=== PATIENT | female | born 1980 | race Caucasian/White ===

== ENCOUNTER 2023-03-07 01:59 | Emergency (ER) | payer OTHER ==
[~2023-03-07] VITALS: Ht 177.8 cm; Wt 68.5 kg
--- NOTE | 2023-03-07 02:15 | NUR ---
BIB FRIEND FOR C/O N/V. PT AAOX4, STILL NAUSEATED, PLACED COMFORTABLY IN BED, VITALS CHECKED.
[2023-03-07] MEDS ORDERED: ONDANSETRON HCL/PF 4 MG/2 ML VIAL ONE (02:22)
[2023-03-07] MEDS ORDERED: ONDANSETRON HCL/PF 4 MG/2 ML VIAL IV ONE (02:30)
[2023-03-07] MEDS ORDERED: IV NS 0.9% 1,000 ML IV PRN (02:30)
--- NOTE | 2023-03-07 02:30 | NUR ---
20GA TO LEFT AC ESTABLISHED.
[2023-03-07 03:24] LABS: BASOPHILS % (AUTO) 0.1 % (0.0-2.0); HEMATOCRIT 41 % (33-45); HEMOGLOBIN 13.5 g/dL (11.5-14.8); LYMPHOCYTES # (AUTO) 1.1 K/uL (0.8-4.8); LYMPHOCYTES % (AUTO) 6.6 % (20.0-44.0); MEAN CORPUSCULAR HGB CONC 33 g/dl (31.0-36.0); MEAN CORPUSCULAR VOLUME 94 fL (82-100); MONOCYTES # (AUTO) 0.9 K/uL (0.1-1.30); MONOCYTES % (AUTO) 5.6 % (2.0-12.0); NEUTROPHILS # (AUTO) 14.3 K/uL (1.8-8.9); NEUTROPHILS % (AUTO) 87.7 % (43.0-81.0); PLATELET COUNT (AUTO) 398 K/uL (150-450); RED BLOOD CELL COUNT(AUTO) 4.33 MIL/uL (4.0-5.2); WHITE BLOOD COUNT (AUTO) 16.3 K/uL (4.3-11.0)
[2023-03-07 03:33] LABS: CALCIUM, SERUM 9.7 mg/dL (8.5-10.1); POTASSIUM 3.8 mmol/L (3.5-5.1)
[2023-03-07] MEDS ORDERED: ONDA4TAB11 PO (04:30)
[2023-03-07 04:47] VITALS: BP 121/64
--- NOTE | 2023-03-07 04:47 | NUR ---
Patient discharged to home in stable condition. Written and verbal after care instructions given. Patient verbalizes understanding of instruction. IV removed. Catheter intact and site benign. Pressure and 4x4 applied to site. No bleeding noted.
== END 2023-03-07 04:47 | disposition home or self-care (01) ==
LOC: ER 02:03
DX: R11.2 Nausea with vomiting, unspecified (principal)
CPT/HCPCS: 99283; 96374; 96361; 85025; 80048; 36415; J2405; J7030